=== PATIENT | female | born 1995 | race Caucasian/White ===

== ENCOUNTER → 2017-11-03 | Outpatient (REF) | payer BC ==
[2017-11-03 15:13] LABS: TOTAL 25(OH) VITAMIN D 20.3 NG/ML (30.0-100.0)
== END ==
LOC: M SFHCADAM 10:24
DX: F41.9 Anxiety disorder, unspecified (principal); E66.9 Obesity, unspecified

== ENCOUNTER → 2018-09-14 | Outpatient (REF) | payer BC | LOC: M LAB REF 19:17 | PROVIDERS: ATTEND Advanced Practice Midwife | DX: Z12.4 Encounter for screening for malignant neoplasm of cervix (principal) ==

== ENCOUNTER → 2018-12-30 | Outpatient (CLI) | payer BC ==
[2018-12-30 09:53] LABS: BASO % 0.3 % (0.0-1.0); EOS # 0.1 10^3/uL (0.0-0.50); EOS % 0.7 % (0.0-3.0); HEMATOCRIT 37.6 % (36.0-47.0); HEMOGLOBIN 12.6 g/dl (12.0-15.5); MEAN CORPUSCULAR HEMOGLOBIN 28.7 pg (27.0-33.0); MEAN CORPUSCULAR HGB CONC 33.5 g/dl (32.0-36.5); MEAN CORPUSCULAR VOLUME 85.6 fl (80.0-96.0); MONO # 0.5 10^3/uL (0.0-0.8); MONO % 4.2 % (0.0-5.0); NEUTROPHILS # 9.8 10^3/uL (1.8-7.7); NEUTROPHILS % 78.3 % (36.0-66.0); PLATELET COUNT, AUTOMATED 293 10^3/uL (150-450); RED BLOOD COUNT 4.39 10^6/uL (4.00-5.40); WHITE BLOOD COUNT 12.5 10^3/uL (4.0-10.0)
[2018-12-30 12:16] LABS: CHLAMYDIA DNA AMPLIFICATION NEGATIVE (NEGATIVE); GC DNA AMPLIFICATION NEGATIVE (NEGATIVE)
[2018-12-30 13:18] LABS: HIV 1&2 SCREEN CENTAUR NEGATIVE (NEGATIVE); RUBELLA IgG QUALITATIVE IMMUNE (IMMUNE)
== END ==
LOC: M SMT 08:56
PROVIDERS: ATTEND Specialist
DX: Z34.81 Encounter for supervision of other normal pregnancy, first trimester (principal); Z3A.09 9 weeks gestation of pregnancy

== ENCOUNTER → 2019-03-01 | Outpatient (CLI) | payer BC ==
[~2019-03-01] MED LIST: PRENTAB9 PO
--- NOTE | 2019-03-01 13:53 | REP ---
Clinical: Anatomical evaluation. Comparison: None . Findings: Examination demonstrates a single live intrauterine in breech presentation. motion is identified by technologist. Placenta is noted posterior, grade zero and low-lying/marginal. Amniotic fluid volume is normal. Cervix measures 5.0 cm in length and appears closed. No evidence for nuchal cord. Gestational age by LMP 18 weeks 0 days with PERFECTO 08/02/2019 . Gestational age by current measurements 18 weeks 6 days with PERFECTO 07/27/2019 . FHR equals 137 beats per minute. BPD 4.1 cm 18 weeks 2 days HC 15.1 cm 18 weeks 1 day AC 13.5 cm 19 weeks 0 days FL 2.8 cm 18 weeks 4 days HL 3.1 cm 20 weeks 3 days HC/AC ratio 1.12 Estimated weight 254 grams ( 76th percentile). Anatomical assessment demonstrates normal structures including cranium, choroid plexus, cavum, lungs, diaphragm, stomach, cord insertion/three-vessel cord, kidneys/bladder, spine, and extremities. Limited evaluation of the posterior fossa, facial features, and heart/ventricular outflow tracts noted. Impression: 1. Single live intrauterine in breech presentation. 2. Low-lying/marginal placenta. 3. Anatomical limitations as noted above may warrant reevaluation and follow-up. Electronically Signed by Ty Holbrook MD 03/01/2019 09:25 A
== END ==
LOC: M RAD 08:24
PROVIDERS: ATTEND Advanced Practice Midwife
DX: Z34.02 Encounter for supervision of normal first pregnancy, second trimester (principal); Z3A.18 18 weeks gestation of pregnancy

== ENCOUNTER → 2019-03-24 | Outpatient (CLI) | payer BC ==
--- NOTE | 2019-03-25 04:11 | REP ---
Clinical: Anatomical evaluation. Comparison: 03/01/2019 . Findings: Examination demonstrates a single live intrauterine in breech presentation. motion is identified by technologist. Placenta is noted posterior and grade one without evidence for placenta previa or abruption. Amniotic fluid volume is normal. Cervix measures 4.8 cm in length and appears closed. No evidence for nuchal cord. Placental tip 2.1 cm from the closed internal os. Gestational age by LMP 21 weeks 2 days with PERFECTO 08/02/2019 . Gestational age by current measurements 22 weeks 0 days with PERFECTO 07/28/2019 . FHR equals 157 beats per minute. Estimated weight 480 grams ( 75th percentile). Anatomical assessment demonstrates normal structures including cranium, choroid plexus, cavum, cerebellum/posterior fossa, facial features, lungs, four-chamber heart/ventricular outflow tracts, diaphragm, stomach, cord insertion/three-vessel cord, kidneys/bladder, spine, and extremities. Impression: 1. single live intrauterine in breech presentation demonstrating appropriate interval growth. 2. No gross abnormalities are identified. 3. Placental tip 2.1 cm from the closed internal os. Electronically Signed by Ty Holbrook MD 03/25/2019 04:03 A
== END ==
LOC: M RAD 15:07
PROVIDERS: ATTEND Advanced Practice Midwife
DX: Z34.02 Encounter for supervision of normal first pregnancy, second trimester (principal); Z3A.22 22 weeks gestation of pregnancy

== ENCOUNTER → 2019-05-10 | Outpatient (CLI) | payer BC ==
[2019-05-10 14:05] LABS: HEMATOCRIT 35.4 % (36.0-47.0); HEMOGLOBIN 11.3 g/dl (12.0-15.5); MEAN CORPUSCULAR HEMOGLOBIN 28.3 pg (27.0-33.0); MEAN CORPUSCULAR HGB CONC 31.9 g/dl (32.0-36.5); MEAN CORPUSCULAR VOLUME 88.5 fl (80.0-96.0); PLATELET COUNT, AUTOMATED 251 10^3/uL (150-450); WHITE BLOOD COUNT 9.8 10^3/uL (4.0-10.0)
== END ==
LOC: M SMT 10:15
PROVIDERS: ATTEND Advanced Practice Midwife
DX: Z34.02 Encounter for supervision of normal first pregnancy, second trimester (principal); Z3A.00 Weeks of gestation of pregnancy not specified

== ENCOUNTER 2019-06-12 09:40 | Outpatient (CLI) | payer BC ==
[~2019-06-12] VITALS: Ht 162.6 cm; Wt 107.0 kg
[2019-06-12] MEDS ORDERED: PRENTAB9 PO (10:04)
[2019-06-12 10:06] VITALS: BP 126/67
[2019-06-12 10:57] VITALS: BP 114/72
== END 2019-06-12 10:58 | disposition home or self-care (01) ==
LOC: M LDO 09:40
PROVIDERS: ATTEND Obstetrics & Gynecology
DX: O36.8130 Decreased fetal movements, third trimester, not applicable or unspecified (principal); Z3A.33 33 weeks gestation of pregnancy
CPT/HCPCS: 59025; G0378; G0463

== ENCOUNTER → 2019-07-05 | Outpatient (REF) | payer BC | LOC: M LAB REF 17:00 | PROVIDERS: ATTEND Advanced Practice Midwife | DX: Z34.83 Encounter for supervision of other normal pregnancy, third trimester (principal); Z36.85 Encounter for antenatal screening for Streptococcus B ==

== ENCOUNTER 2019-07-29 17:57 | Inpatient (IN) | payer BC ==
[2019-07-29] VITALS (18 sets, daily range): BP systolic 89–141; BP diastolic 51–90
[~2019-07-29] VITALS: Ht 162.6 cm; Wt 109.6 kg
[2019-07-29 21:46] LABS: HEMATOCRIT 37.2 % (36.0-47.0); HEMOGLOBIN 11.7 g/dl (12.0-15.5); MEAN CORPUSCULAR HGB CONC 31.5 g/dl (32.0-36.5); MEAN CORPUSCULAR VOLUME 85.7 fl (80.0-96.0); PLATELET COUNT, AUTOMATED 270 10^3/uL (150-450); RED BLOOD COUNT 4.34 10^6/uL (4.00-5.40); WHITE BLOOD COUNT 11.1 10^3/uL (4.0-10.0)
[2019-07-29] MEDS ORDERED: LACTATED RINGER'S 1000 ML IV STA (21:55)
[2019-07-29] MEDS ORDERED: LR 1,000 ML IV SCH (21:55)
[2019-07-29] MEDS ORDERED: FENTANYL 2MCG/ML ROPIVACAINE 0.2% IN 0.9% NACL 100ML IVBAG As Ordered ONE (22:00)
[2019-07-29] MEDS ORDERED: ePHEDrine SULFATE 25 MG/5 ML(5MG/ML) SYRINGE As Ordered ONE (23:39)
[2019-07-29] MEDS ORDERED: FENTANYL/ROPIVACAINE/NACL BAG 100 ML EPIDURAL SCH (23:45)
[2019-07-29] MEDS ORDERED: diphenhydrAMINE INJ 50MG/ML VIAL (J1200) IV PRN (23:45)
[2019-07-29] MEDS ORDERED: EPIDURAL COMMENT XX SCH (23:45)
[2019-07-29] MEDS ORDERED: EPIDURAL/PCA KEYS XX PRN (23:45)
[2019-07-29] MEDS ORDERED: REFRIGERATOR IV KEYS XX PRN (23:45)
[2019-07-29] MEDS ORDERED: ONDANSETRON 4MG/2ML VIAL (J2405) IV PRN (23:45)
[2019-07-29] MEDS ORDERED: LACTATED RINGER'S 1000 ML IV PRN (23:45)
[2019-07-29] MEDS ORDERED: NALOXONE INJ 0.4 MG/1 ML VIAL (J2310) IV PRN (23:45)
[2019-07-29] MEDS ORDERED: ePHEDrine SULFATE 25 MG/5 ML(5MG/ML) SYRINGE IV PRN (23:45)
[2019-07-30] VITALS (27 sets, daily range): BP systolic 92–146; BP diastolic 50–82
[2019-07-30] MEDS ORDERED: OXYTOCIN 30 UNITS IN 0.9% NaCl 500ML IV BAG (J2590) As Ordered ONE (05:58)
--- NOTE | 2019-07-30 07:31 | HPE ---
DATE OF ADMISSION: 07/29/2019 REASON FOR ADMISSION: Labor. HISTORY OF PRESENT ILLNESS: Mrs. Ragsdale is a 24-year-old 1 that presents at 39 weeks 3 days estimated gestational age by her last menstrual period, confirmed by first trimester ultrasound with complaints of contractions. She has reported contractions throughout the day that have increased in frequency and intensity. She denies any vaginal bleeding or leakage of fluid. She reports active movement. Her course has been unremarkable. She initiated care in her first trimester and has been appropriate throughout. PAST MEDICAL HISTORY: None. PAST SURGICAL HISTORY: None. PAST OBSTETRICAL HISTORY: She is a 1. SOCIAL HISTORY: She denies any alcohol, tobacco or drug use during . MEDICATIONS: Her medications include vitamins. ALLERGIES: She has no known drug allergies. PHYSICAL EXAMINATION: Vital signs: Stable. She is afebrile. She has a category 1 heart rate tracing. heart rate is 130s, moderate variability. Contractions on tocometer approximately every 3 minutes. Her lungs are clear to auscultation bilaterally. Cardiovascular: Heart regular rate and rhythm. Abdomen: Gravid, nontender. Estimated weight 3700 grams. Cervical exam: She is 4-5 cm dilated, 80% effaced, -2 station. LABORATORY: Her blood type is O+, antibody screen is negative. Rubella is immune. RPR is nonreactive. Hepatitis surface antigen is negative. HIV is negative. Hepatitis C is nonreactive. Chlamydia and gonorrhea screens are negative. She had a normal 1-hour Glucola. She is GBS negative. ASSESSMENT: 1. Mrs. Ragsdale is a 24-year-old 1 at 39 and 3 in active labor. 2. Reassuring status. PLAN: 1. Plan is to admit to labor and delivery, CBC, type and screen, RPR. 2. Patient is a good candidate for an epidural. 3. Anticipate spontaneous vaginal delivery.
[2019-07-30 08:37] LABS: CORD GAS ABE V -8.2; CORD GAS HCO3 V 17.3 MEQ/L; CORD GAS PCO2 V 36.2 mmHg; CORD GAS PH V 7.298 UNITS; CORD GAS PO2 V 35.2 mmHg; CORD GAS SBC V 17.5 MEQ/L; CORD GAS TCO2 V 18.4 MEQ/L
[2019-07-30 08:42] LABS: CORD GAS ABE A -12.1; CORD GAS HCO3 A 19.4 MEQ/L; CORD GAS O2 SAT A 44.3 %; CORD GAS PH A 7.074 UNITS; CORD GAS PO2 A 27.3 mmHg; CORD GAS SBC A 14.2 MEQ/L; CORD GAS TCO2 A 21.5 MEQ/L
[2019-07-30] MEDS ORDERED: OXYTOCIN DRIP 30 UNITS in IV 1 EA IV SCH (09:10)
[2019-07-30] MEDS ORDERED: ANUSOL HC CREAM 30GM TOP PRN (09:15)
[2019-07-30] MEDS ORDERED: RHOGAM 300 MCG (1500 IU) INJ (J2790) IM SCH (09:15)
[2019-07-30] MEDS ORDERED: LIDOCAINE 1% MDV 20ML VIAL INFIL ONE (09:15)
[2019-07-30] MEDS ORDERED: DOCUSATE SODIUM 100 MG CAP PO PRN (09:15)
[2019-07-30] MEDS ORDERED: ACETAMINOPHEN TAB 650MG DOSE (2X325MG) PO PRN (09:15)
[2019-07-30] MEDS ORDERED: MOM 30ML SUSPENSION UDC PO PRN (09:15)
[2019-07-30] MEDS ORDERED: MEASLES,MUMPS,RUBELLA VACCINE INJ (MMR-II) (90707) SC SCH (09:15)
[2019-07-30] MEDS ORDERED: miSOPROStol 200 MCG TAB (S0191) PR ONE (09:15)
[2019-07-30] MEDS ORDERED: IBUPROFEN 600 MG TAB PO PRN (09:15)
[2019-07-30] MEDS ORDERED: DIBUCAINE 1% OINTMENT 30GM TOP PRN (09:15)
--- NOTE | 2019-07-30 09:22 | DNPDOC ---
[facility] Delivery Note Delivery Note DATE OF DELIVERY: 07/30/2019 PREDELIVERY DIAGNOSIS: 39+5/7 weeks' gestation and labor. POST DELIVERY DIAGNOSIS: Delivered. PROCEDURE: Spontaneous vaginal delivery. PROVIDER: Kayleigh Ulloa CNM ANESTHESIA: Epidural. ESTIMATED BLOOD LOSS: 500 mL. FINDINGS: 7 pound 5 ounce, 3320gm female , Score 9/10, no nuchal cord. DELIVERY SUMMARY: Patient is a 24-year-old 1 now para 1-0-0-1 who was admitted to labor and delivery for active labor. She utilized and epidural for labor coping. SROM clear fluid 0238. FD 0544. Viable female delivered ALYSON without difficulty @ 0817. Spontaneous respirations, transitioned on maternal abdomen. Cord doubly clamped; cut by FOB under my direction. Cord gases obtained and pending. Placenta horne, intact with 3v cord @ 0833. Fundus slow to firm with brisk bleeding despite IV pitocin bolus and fundal massage. Misoprostol 1000mcg DC and methergine 0.2mg IM given with good control of bleeding. EBL 500ml. Cervix, vagina and perineum inspected. 2nd degree vaginal laceration noted, infiltrated with lidocaine and repaired with 3-0 vicryl rapide in the usual fashion. Sponge, sharp and instrument count correct. Parents are naming their daughter Kayleigh Ulloa CNM Jul 30, 2019 09:22
[2019-07-30] MEDS ORDERED: METHYLERGONOVINE MALEATE 0.2 MG/ML VIAL (J2210) IM ONE (09:30)
[2019-07-30] MEDS: IBUPROFEN 800 MG TAB PO PRN ×2 (10:03→17:56)
[2019-07-30] MEDS: ACETAMINOPHEN 500 MG TAB PO PRN (11:59)
[2019-07-30] MEDS: METHYLERGONOVINE MALEATE 0.2 MG TAB PO SCH (16:37)
[2019-07-31] MEDS: METHYLERGONOVINE MALEATE 0.2 MG TAB PO SCH ×2 (00:54→04:54)
[2019-07-31 05:07] VITALS: BP 127/60
[2019-07-31 09:00] VITALS: BP 109/70
[2019-07-31] MEDS ORDERED: METHYLERGONOVINE MALEATE 0.2 MG TAB PO PRN (10:00)
[2019-07-31] MEDS: PRENATAL VITAMINS CHEWABLE TABLET PO SCH (10:13)
[2019-07-31] MEDS: ACETAMINOPHEN 500 MG TAB PO PRN (10:14)
[2019-07-31 18:05] VITALS: BP 114/73
[2019-07-31] MEDS: IBUPROFEN 800 MG TAB PO PRN (19:26)
[2019-08-01 06:00] VITALS: BP 102/80
[2019-08-01] MEDS: PRENATAL VITAMINS CHEWABLE TABLET PO SCH (07:19)
== END 2019-08-01 13:00 | disposition home or self-care (01) | DRG 560 ==
LOC: M LDO 17:57 → M LDI 20:58 → M OBS 07-30 11:00
PROVIDERS: ADMIT Obstetrics & Gynecology; ATTEND Advanced Practice Midwife
PROC: 10E0XZZ Delivery of Products of Conception, External Approach (ICD-10-PCS; principal; 2019-07-30)
PROC: 0KQM0ZZ Repair Perineum Muscle, Open Approach (ICD-10-PCS; 2019-07-30)
DX: O70.1 Second degree perineal laceration during delivery (principal); Z3A.39 39 weeks gestation of pregnancy; Z37.0 Single live birth; O62.2 Other uterine inertia